=== PATIENT | male | born 1975 | race Hispanic/Latino ===

== ENCOUNTER → 2018-03-08 | Day surgery (SDC) | payer OTHER ==
[~2018-03-08] VITALS: Ht 185.4 cm; Wt 95.3 kg
[~2018-03-08] MED LIST: CENTRUM MEN'S1 EACH PO; OMEPRAZOLE20 M2 PO; PERCOCET 5-3251 EACH PO
--- NOTE | 2018-03-08 13:41 | Operative Report ---
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 During his consultation, he states he has had penile discomfort due to itching and skin irritation under his foreskin. He is interested in a circumcision bc it is very bothersome. The risks, benefits and alternatives were given in the office and the holding area. Consent was signed after all questions were answered. Patient was taken to the operating room and placed in the supine position. Timeout was performed. LMA anesthesia was begun. IV antibiotics were infused. He was shaved in the genitalia region and prepped and draped in the standard sterile fashion. A penile block was performed over 1% lidocaine and half percent Marcaine at the 12:00 infrapubic region of the penis and circumferentially as well. Straight baby tracey's were then used to tent up the foreskin at 12 6 area 9:00. A large tracey was then placed across the excess foreskin from the frenulum region to the 12:00 region taking care not to clamp the penile hogue. This was then cut using a #12 blade. However the blade was somewhat dull and it was not cutting efficiently and 2 small nicks were made on the side of the penile skin. This was later sutured with 5-0 Vicryl interrupted sutures. Once the excess foreskin was cut and passed off the field to be sent to pathology the area of the defect was then cauterized with point coagulation. Once all the bleeding was stopped 4-0 chromic sutures were placed around the circumferential incision. The U incision was placed at the frenulum followed by one at 12:00 3:00 and 9:00. Clamps are placed on these to stabilize the penis. The quadrants were then closed using interrupted 4-0 chromic sutures. When the entire circumference was sutured bacitracin ointment was placed around this incision site. This was followed by Xeroform gauze. This was then followed by Kopban dressing at the base of the penis to the tip, taking care not to make a dressing too tight. The sponge and needle count were correct at the end of the case. Patient tolerated the procedure well. Betadine solution was cleaned off with the patient. He is transferred to the recovery room stable condition. Findings: 2 small herpetic lesions at the ventrum of the penis junie and half way down the shaft. Distal one was excised with the foreskin. Discharge Disposition: PACU
== END ==
LOC: STS 01:40
DX: N47.1 Phimosis (principal); A60.01 Herpesviral infection of penis; N48.89 Other specified disorders of penis; N50.819 Testicular pain, unspecified; K21.9 Gastro-esophageal reflux disease without esophagitis; F17.200 Nicotine dependence, unspecified, uncomplicated
CPT/HCPCS: 88304; J0131; J0690; J2001; J2250